=== PATIENT | female | born 1985 | race Caucasian/White ===

== ENCOUNTER 2024-08-12 14:00 | Emergency (ER) | payer SELFPAY ==
[2024-08-12] MEDS: Dexamethasone 4 MG/ML SDV IVPUSH ONE (14:37)
[2024-08-12] MEDS: Sodium Chloride 0.9% 1,000 ML IV ONE (14:38)
[2024-08-12] MEDS: diphenhydrAMINE 50 MG/ML SDV IVPUSH ONE (14:38)
[2024-08-12] MEDS: droPERidol 2.5 MG/ML SDV IVPUSH ONE (14:38)
[2024-08-12 14:43] LABS: BASOPHILS ABSOLUTE AUTO 0.07 K/uL (0.00-0.20); BASOPHILS PERCENT AUTO 0.9 % (0.0-1.0); EOSINOPHILS ABSOLUTE AUTO 0.03 K/uL (0.00-0.45); EOSINOPHILS PERCENT AUTO 0.4 % (0.0-6.0); HEMATOCRIT 40.1 % (37.0-47.0); HEMOGLOBIN 14.3 g/dL (12.0-16.0); IMMATURE GRAN ABSOLUTE AUTO 0.01 K/uL (0.00-0.05); IMMATURE GRAN PERCENT AUTO 0.1 % (0.0-0.4); LYMPHOCYTES ABSOLUTE AUTO 1.06 K/uL (1.00-4.80); LYMPHOCYTES PERCENT AUTO 13.8 % (24.0-44.0); MEAN CORPUSCULAR HGB CONC 35.7 g/dL (32.0-36.0); MEAN CORPUSCULAR VOLUME 86.8 fL (83.0-99.0); MEAN PLATELET VOLUME 10.9 fL (9.4-12.3); MONOCYTES PERCENT AUTO 3.9 % (0.0-8.0); NEUTROPHILS ABSOLUTE AUTO 6.19 K/uL (1.80-7.70); NEUTROPHILS PERCENT AUTO 80.9 % (41.0-71.0); PLATELET COUNT,PLT 258 K/uL (150-400); RED BLOOD CELL COUNT 4.62 M/uL (4.10-5.30); WHITE BLOOD CELL COUNT,WBC 7.66 K/uL (3.9-11.3)
[2024-08-12 15:05] LABS: A/G RATIO 1.1 (0.9-1.6); ALANINE AMINOTRANSFERASE,ALT 28 IU/L (14-63); ALBUMIN 4.1 g/dL (3.4-5.0); ALKALINE PHOSPHATASE 89 U/L (46-116); ASPARTATE AMNIOTRANSFERASE,AST 19 IU/L (15-37); BILIRUBIN TOTAL 0.5 mg/dL (0.2-1.0); BLOOD UREA NITROGEN,BUN 9 mg/dL (7.0-18.0); CALCIUM 9.2 mg/dL (8.5-10.1); CARBON DIOXIDE,CO2 25.7 mmol/L (21.0-32.0); CHLORIDE,CL 105 mmol/L (98-107); EST CRCL DRUG DOSING (CG) 55.87 mL/min; ETHANOL BLOOD MEDICAL <3 mg/dL; GLUCOSE RANDOM 113 mg/dL (74-106); LIPASE 38 U/L (16-77); MAGNESIUM 1.9 mg/dL (1.8-2.4); POTASSIUM,K 3.8 mmol/L (3.5-5.1); PROTEIN TOTAL,TP 7.9 g/dL (6.4-8.2); SODIUM,NA 141 mmol/L (136-145)
[2024-08-12 15:07] LABS: C-REACTIVE PROTEIN < 0.05 mg/dL (<0.3); ESTIMATED GFR 73 mL/min (>60)
== END 2024-08-12 15:52 | disposition home or self-care (01) ==
LOC: MW.ED 14:00
DX: G43.909 Migraine, unspecified, not intractable, without status migrainosus (principal); R11.2 Nausea with vomiting, unspecified; Z88.8 Allergy status to other drugs, medicaments and biological substances; Z91.018 Allergy to other foods; Z88.1 Allergy status to other antibiotic agents
CPT/HCPCS: 36415; 70450; 80053; 80307; 83690; 83735; 84703; 85025; 85652; 86140; 96361; 96374; 96375; 99284; J1100; J1200; J1790; J7030; 99283

== ENCOUNTER 2024-08-27 15:30 | Emergency (ER) | payer SELFPAY ==
[2024-08-27] MEDS: Ketorolac 30 MG/ML SDV IM ONE (16:23)
[2024-08-27] MEDS: Orphenadrine 60 MG/2 ML Inj IM ONE (16:24)
== END 2024-08-27 17:06 | disposition home or self-care (01) ==
LOC: MW.ED 15:30
DX: S46.911A Strain of unspecified muscle, fascia and tendon at shoulder and upper arm level, right arm, initial encounter (principal); Z75.3 Unavailability and inaccessibility of health-care facilities; Z88.1 Allergy status to other antibiotic agents; Z88.8 Allergy status to other drugs, medicaments and biological substances; Z90.710 Acquired absence of both cervix and uterus; W06.XXXA Fall from bed, initial encounter; Y93.01 Activity, walking, marching and hiking
CPT/HCPCS: 73030; 73080; 73100; 96372; 99283; J1885; J2360; 99282

== ENCOUNTER 2024-09-01 19:41 | Emergency (ER) | payer SELFPAY ==
[2024-09-01 20:14] LABS: BASOPHILS ABSOLUTE AUTO 0.07 K/uL (0.00-0.20); EOSINOPHILS ABSOLUTE AUTO 0.06 K/uL (0.00-0.45); EOSINOPHILS PERCENT AUTO 0.9 % (0.0-6.0); HEMATOCRIT 35.5 % (37.0-47.0); HEMOGLOBIN 12.4 g/dL (12.0-16.0); IMMATURE GRAN ABSOLUTE AUTO 0.01 K/uL (0.00-0.05); IMMATURE GRAN PERCENT AUTO 0.1 % (0.0-0.4); LYMPHOCYTES ABSOLUTE AUTO 1.59 K/uL (1.00-4.80); LYMPHOCYTES PERCENT AUTO 22.6 % (24.0-44.0); MEAN CORPUSCULAR HEMOGLOBIN 31.1 pg (28.0-32.0); MEAN CORPUSCULAR HGB CONC 34.9 g/dL (32.0-36.0); MEAN PLATELET VOLUME 10.9 fL (9.4-12.3); MONOCYTES PERCENT AUTO 7.1 % (0.0-8.0); NEUTROPHILS ABSOLUTE AUTO 4.81 K/uL (1.80-7.70); NEUTROPHILS PERCENT AUTO 68.3 % (41.0-71.0); PLATELET COUNT,PLT 247 K/uL (150-400); RED BLOOD CELL COUNT 3.99 M/uL (4.10-5.30); WHITE BLOOD CELL COUNT,WBC 7.04 K/uL (3.9-11.3)
[2024-09-01] MEDS: Alum Hydrox/Mag Hydrox/Simeth 15 ML, Lidocaine 2% 5 ML PO ONE (20:33)
[2024-09-01] MEDS: Sodium Chloride 0.9% 1,000 ML IV ONE (20:33)
[2024-09-01 20:50] LABS: A/G RATIO 1.2 (0.9-1.6); ALANINE AMINOTRANSFERASE,ALT 20 IU/L (14-63); ALBUMIN 3.9 g/dL (3.4-5.0); ALKALINE PHOSPHATASE 104 U/L (46-116); ASPARTATE AMNIOTRANSFERASE,AST 13 IU/L (15-37); BILIRUBIN TOTAL 0.9 mg/dL (0.2-1.0); BLOOD UREA NITROGEN,BUN 18 mg/dL (7.0-18.0); CALCIUM 9.1 mg/dL (8.5-10.1); CARBON DIOXIDE,CO2 28.1 mmol/L (21.0-32.0); CHLORIDE,CL 105 mmol/L (98-107); EST CRCL DRUG DOSING (CG) 55.87 mL/min; ESTIMATED GFR 73 mL/min (>60); GLUCOSE RANDOM 98 mg/dL (74-106); LIPASE 49 U/L (16-77); POTASSIUM,K 4.5 mmol/L (3.5-5.1); PRO B-TYPE NATRIUR PEPT,BNPPRO 52 pg/mL (0-125); PROTEIN TOTAL,TP 7.2 g/dL (6.4-8.2); SODIUM,NA 141 mmol/L (136-145)
[2024-09-01] MEDS: Iopamidol 755 MG/ML 500 ML Multipack Bottle IVPUSH ONE (21:01)
[2024-09-01 21:32] LABS: APPEARANCE,URINE CLEAR; BILIRUBIN,URINE NEGATIVE (NEGATIVE); COLOR,URINE YELLOW; GLUCOSE,URINE NEGATIVE (NEGATIVE); KETONES,URINE NEGATIVE (NEGATIVE); LEUKOCYTE ESTERASE,URINE NEGATIVE (NEGATIVE); NITRITE,URINE NEGATIVE (NEGATIVE); OCCULT BLOOD,URINE NEGATIVE (NEGATIVE); PH,URINE 7.5 (5.0-8.0); PROTEIN,URINE NEGATIVE (NEGATIVE); UROBILINOGEN,URINE 0.2 EU/dL (<2.0)
[2024-09-01] MEDS: Pantoprazole 40 MG in Sodium Chloride 0.9% 10 ML IVPUSH ONE (21:56)
== END 2024-09-01 22:01 | disposition home or self-care (01) ==
LOC: MW.ED 19:41
DX: K92.2 Gastrointestinal hemorrhage, unspecified (principal); K92.1 Melena; Z75.3 Unavailability and inaccessibility of health-care facilities; Z88.1 Allergy status to other antibiotic agents; Z88.8 Allergy status to other drugs, medicaments and biological substances; Z90.710 Acquired absence of both cervix and uterus
CPT/HCPCS: 36415; 71045; 74177; 80053; 81003; 83690; 83735; 83880; 84484; 84703; 85025; 93005; 96361; 96374; 99284; A9270; J2470; J7030; Q9967; 99283